=== PATIENT | male | born 1995 | race Caucasian/White ===

== ENCOUNTER 2024-09-06 09:59 | Emergency (ER) | payer OTHER ==
[2024-09-06 10:09] VITALS: TEMP 97.6
[2024-09-06] MEDS: DIPH,PERTUS(ACELL)TETVAC-LF 0.5 ML VIAL IM ONE (10:30)
--- NOTE | 2024-09-06 10:30 | ED ---
General Adult HPI - General Chief complaint: Wound/Laceration Stated complaint: Right hand injury Time Seen by Provider: 09/06/24 10:13 Source: patient, RN notes reviewed Mode of arrival: ambulatory Limitations: no limitations - History of Present Illness Initial comments: 28-year-old male presents to the emergency department for evaluation of right index finger injury. Patient states that while at work he got his finger stuck in a wheel. He reports pain and laceration to the distal right index finger. He is unsure when he last had a tetanus vaccine. - Related Data Previous Rx's Medication Instructions Recorded Cephalexin [Keflex] 500 mg PO Q6HR #40 cap 09/06/24 HYDROcodone/APAP 5-325MG [[place] 5] 1 each PO Q6HR PRN #12 tab 09/06/24 Allergies Allergy/AdvReac Type Severity Reaction Status Date / Time No Known Allergies Allergy Verified 09/06/24 10:09 Review of Systems ROS Statement: Those systems with pertinent positive or pertinent negative responses have been documented in the HPI. ROS Other: All systems not noted in ROS Statement are negative. Past Medical History Past Medical History: No Reported History History of Any Multi-Drug Resistant Organisms: None Reported Past Surgical History: No Surgical Hx Reported Smoking Status: Never smoker Past Alcohol Use History: Rare Past Drug Use History: Marijuana General Exam Limitations: no limitations General appearance: alert, in no apparent distress Head exam: Present: atraumatic, normocephalic, normal inspection Eye exam: Present: normal appearance, PERRL, EOMI. Absent: scleral icterus, conjunctival injection, periorbital swelling Respiratory exam: Present: normal lung sounds bilaterally. Absent: respiratory distress, wheezes, rales, rhonchi, stridor Cardiovascular Exam: Present: regular rate, normal rhythm, normal heart sounds. Absent: systolic murmur, diastolic murmur, rubs, gallop, clicks Extremities exam: Present: tenderness, normal capillary refill, other (radial pulses 2+, right second digit laceration). Absent: pedal edema, joint swelling, calf tenderness Neurological exam: Present: alert, oriented X3 Psychiatric exam: Present: normal affect, normal mood Skin exam: Present: warm, dry. Absent: intact Course Vital Signs 09/06/24 09/06/24 10:04 12:40 Temperature 97.6 F Pulse Rate 100 87 Respiratory 18 16 Rate Blood Pressure 143/75 125/78 O2 Sat by Pulse 98 97 Oximetry Procedures - Laceration Laceration #1 Consent Obtained: verbal consent Indication: laceration Site: hand Size (cm): 2 Description: irregular Depth: simple, single layer Anesthetic Used: lidocaine 1% Anesthesia Technique: nerve block Amount (mls): 5 Pre-repair: wound explored, irrigated extensively Type of Sutures: other Size of Sutures: 5-0 Number of Sutures: 10 Technique: simple, interrupted Patient Tolerated Procedure: well, no complications Medical Decision Making - Medical Decision Making Was pt. sent in by a medical professional or institution (, PA, DESKTOP PUBLISHER, urgent care, hospital, or jail...) When possible be specific @ -No Did you speak to anyone other than the patient for history (EMS, parent, family, police, friend...)? What history was obtained from this source @ -No Did you review nursing and triage notes (agree or disagree)? Why? @ -I reviewed and agree with nursing and triage notes Were old charts reviewed (outside hosp., previous admission, EMS record, old EKG, old radiological studies, urgent care reports/EKG's, jail records)? Report findings @ -No old charts were reviewed Differential Diagnosis (chest pain, altered mental status, abdominal pain women, abdominal pain men, vaginal bleeding, weakness, fever, dyspnea, syncope, headache, dizziness, GI bleed, back pain, seizure, CVA, palpatations, mental health, musculoskeletal)? @ -Differential Musculoskeletal Muscular strain, contusion, ligament sprain, fracture, arthritis, septic arthritis, bursitis, cellulitis, muscle spasm, nerve compression, DVT, arterial occlusion, herpes zoster, electrolyte abnormality, tumor.... This is not meant to be in all inclusive list EKG interpreted by me (3pts min.). @ -None X-rays interpreted by me (1pt min.). @ -X-ray of the right displaced fracture of the distal metadiaphysis of the s econd distal phalanx, joint spaces preserved CT interpreted by me (1pt min.). @ -None done U/S interpreted by me (1pt. min.). @ -None done What testing was considered but not performed or refused? (CT, X-rays, U/S, labs)? Why? @ -None What meds were considered but not given or refused? Why? @ -None Did you discuss the management of the patient with other professionals (professionals i.e. , PA, DESKTOP PUBLISHER, lab, RT, psych nurse, health care social worker, sound cutter, teacher, maritime officer, insurance case manager)? Give summary @ -No Was smoking cessation discussed for >3mins.? @ -No Was critical care preformed (if so, how long)? @ -No Were there social determinants of health that impacted care today? How? (Homelessness, low income, unemployed, alcoholism, drug addiction, transportation, low edu. Level, literacy, decrease access to med. care, [facility], rehab)? @ -No Was there de-escalation of care discussed even if they declined (Discuss DNR or withdrawal of care, Hospice)? DNR status @ -No What co-morbidities impacted this encounter? (DM, HTN, Smoking, COPD, CAD, Cancer, CVA, ARF, Chemo, Hep., AIDS, mental health diagnosis, sleep apnea, morbid obesity)? @ -None Was patient admitted / discharged? Hospital course, mention meds given and route, prescriptions, significant lab abnormalities, going to OR and other pertinent info. @ -Discharge. Patient presented the emergency department for evaluation of right second digit injury. X-rays obtained revealing a displaced fracture of the distal metadiaphysis of the second distal phalanx. Patient has overlying laceration and therefore was administered IV Kefzol. He was administered medication for pain. Digital block was performed. The wound was irrigated with 1 L of normal saline. Wound was repaired. Patient was placed in a finger splin t. He was provided information for orthopedic follow-up. He is understanding and agreeable with this. Patient stable at time of discharge. Case discussed with Dr. Temple Undiagnosed new problem with uncertain prognosis? @ -No Drug Therapy requiring intensive monitoring for toxicity (Heparin, Nitro, Insulin, Cardizem)? @ -No Were any procedures done? @ -No Diagnosis/symptom? @ -Open finger fracture Acute, or Chronic, or Acute on Chronic? @ -Acute Uncomplicated (without systemic symptoms) or Complicated (systemic symptoms)? @ -Complicated Side effects of treatment? @ -No Exacerbation, Progression, or Severe Exacerbation? @ -No Poses a threat to life or bodily function? How? (Chest pain, [place], [place], pneumonia, PE, COPD, DKA, ARF, appy, cholecystitis, CVA, Diverticulitis, Homicidal, Suicidal, threat to staff... and all critical care pts) @ -No Disposition Clinical Impression: Laceration, Open fracture of finger Disposition: HOME SELF-CARE Condition: Stable Instructions (If sedation given, give patient instructions): Care For Your Stitches (ED), Finger Fracture (ED) Additional Instructions: Please keep wound clean and dry. Follow up with the hand surgeon. wall mirror department supervisor antibiotics and take to completion. Return to the emergency department for new or worsening symptoms. Prescriptions: Cephalexin [Keflex] 500 mg PO Q6HR #40 cap HYDROcodone/APAP 5-325MG [[place] 5] 1 each PO Q6HR PRN #12 tab PRN Reason: Pain Is patient prescribed a controlled substance at d/c from ED?: No Referrals: Micah Bailey MD [STAFF PHYSICIAN] - 1-2 days (Contact a primary care office to become established with a provider. ) None,Stated [Primary Care Provider] - 1-2 days Yosi Goodwin MD [Medical Doctor] - 1-2 days Albert Carvajal MD [STAFF PHYSICIAN] - 1-2 days Forms: Area PCPs
[2024-09-06] MEDS: KETOROLAC 15 MG/ML 1 ML VIAL IM STA (10:31)
[2024-09-06] MEDS: LIDOCAINE 1% INJ 10MG/ML (20 ML MDV) SQ ONE (10:31)
--- NOTE | 2024-09-06 11:17 | XR ---
EXAMINATION TYPE: XR finger RT DATE OF EXAM: 09/06/2024 CLINICAL INDICATION: Male, 28 years old with history of 2nd finger, caught in wheel, pain TECHNIQUE: Frontal, lateral and oblique images of second finger right hand obtained. COMPARISON: None. FINDINGS: There is an acute displaced transverse fracture through the distal metadiaphysis of the se cond distal phalanx with 7 mm fracture fragment. Joint spaces in the second finger are preserved. Ove rlying gauze or bandage material is present. IMPRESSION: As above. [facility], , 09/06/2024 11:15 AM
[2024-09-06] MEDS: ceFAZolin 1,000 MG VIAL (IM USE) IM STA (11:18)
[2024-09-06] MEDS: HYDROmorphone 0.5 MG/0.5 ML SYRINGE IVP STA (11:31)
[2024-09-06 12:42] VITALS: BP 125/78; PULSE 87; RESP 16
== END 2024-09-06 12:44 | disposition home or self-care (01) ==
LOC: EC 09:59
DX: S62.632A Displaced fracture of distal phalanx of right middle finger, initial encounter for closed fracture (principal); W23.0XXA Caught, crushed, jammed, or pinched between moving objects, initial encounter
CPT/HCPCS: 73140; 90715; 99283; 12001; 90471; 96365; 96375; 96372; J0690; J2003; J1885; J1171